=== PATIENT | female | born 1985 ===

== ENCOUNTER 2025-09-05 15:56 | Day surgery (SDC) | payer OTHER ==
[2025-09-04 12:50] VITALS: BP 125/85
[~2025-09-05] VITALS: Ht 165.1 cm; Wt 71.7 kg
[~2025-09-05 15:56] MED LIST: CEFAZOLIN SODIUM 1,000 MG VIAL ONE; CHLORHEXIDINE GLUCONATE 120 ML BOTTLE TOP ONE
== END 2025-09-05 17:15 | disposition home or self-care (01) ==
LOC: CIR.AMB 15:56
PROVIDERS: ATTEND Surgery
DX: D24.2 Benign neoplasm of left breast (principal); D48.62 Neoplasm of uncertain behavior of left breast; N60.82 Other benign mammary dysplasias of left breast; R92.1 Mammographic calcification found on diagnostic imaging of breast